=== PATIENT | female | born 1995 | race Caucasian/White ===

== ENCOUNTER 2023-07-14 03:36 | Inpatient (IN) | payer BC ==
[~2023-07-14] VITALS: Ht 170.2 cm; Wt 101.8 kg
[2023-07-14] VITALS (32 sets, daily range): BP systolic 102–145; BP diastolic 55–90; PULSE 60–117; TEMP 97.6–98.8
--- NOTE | 2023-07-14 03:45 | NUR ---
Ambulatory to unit for labor assessment, accompanied by spouse. Pt reports cramping/ctx since 29. Reports 'gush of mucous around the same time and I've been having to go to the bathroom alot since then." Oriented to room, monitor, plan of care. Questions invited and answered. SVE with +amniotrace, minimal clear fluid /-2 post.
--- NOTE | 2023-07-14 03:50 | NUR ---
0350 G2L0 40.4 WEEK GEST TO LR6 WITH C/O SROM AT 0030 AND CONTRACTIONS. EFM ON. SVE WITH POSITIVE AMNIOTRACE AND LEAKING CL FLUID. SVE /-2. ADM ASSESSEMENT COMPLETED. DR DE LEÓN NOTIFIED AND ADM ORDERS RECEIVED.
[2023-07-14] MEDS ORDERED: QUALITY CHOICE1 TA7 PO (03:58)
[2023-07-14] MEDS ORDERED: LR & Oxytocin 500 ML IV SCH ×2 (04:15)
[2023-07-14] MEDS ORDERED: LR 1,000 ML IV SCH (04:15)
[2023-07-14 04:59] LABS: BASO # 0.1 K/mm3 (0.0-0.2); BASO % 0.4 % (0.0-2.0); EOS % 0.1 % (0.0-4.0); GRAN # 15.3 K/mm3 (1.4-6.5); GRAN % 80.2 % (42.2-75.2); HEMATOCRIT 38.5 % (37.0-47.0); HEMOGLOBIN 13.1 g/dl (12.5-16.0); LYMPH # 2.6 K/mm3 (1.2-3.4); LYMPH % 13.5 % (20.0-51.0); MEAN CELL VOLUME 83 fl (80.0-100.0); MEAN CORPUSCULAR HEMOGLOBIN 28 pg (27-31); MEAN CORPUSCULAR HGB CONC 34 g/dl (33.0-37.0); MEAN PLATELET VOLUME 10.8 fl (7.4-10.4); MONO # 0.9 K/mm3 (0.1-0.6); MONO % 4.9 % (1.7-9.3); PLATELET COUNT 268 K/mm3 (130-400); RED BLOOD COUNT 4.64 M/mm3 (4.10-5.30); REDCELL DISTRIBUTION WIDTH-CV 13.3 % (11.5-14.5)
--- NOTE | 2023-07-14 05:20 | NUR ---
0520 STANDING AT SIDE OF BED FOR COMFORT. 0530 DR DE LEÓN HERE. PT IV TO INT. OFF EFM AND UP TO AMB.
--- NOTE | 2023-07-14 06:10 | NUR ---
0610Bedside report from Igor Rose RN. Pt breathing through ctx and requesting epidural. Pt to bathroom to void. 0616EFM placed and tracing well. Pt standing at edge of bed. LR bolus initiated. Infusing well. 0625Andrez rEazo CRNA notified pt requesting epidural. 0635Pt to edge of bed for epidural placement. Andrez Erazo CRNA at bedside. EFM tracing intermittently due to maternal position. 0646Epidural placed and test dose at this time by Andrez Erazo CRNA. See anesthesia record. 0652Pt wedge left. EFM adjusted and tracing well. Plan of care and safety precautions reviewed. Pt verbalizes understanding. 0710Subtle early decels noted. Pt wedge right with peanut ball. Pt reports ctx less intense and able to rest. Call light within reach.
[2023-07-14] MEDS ORDERED: ROPivacaine PF 0.2% 200 ML IV ONE (06:29)
[2023-07-14] MEDS ORDERED: diphenhydrAMINE 25 MG CAP PO PRN (07:15)
[2023-07-14] MEDS ORDERED: Naloxone 0.4 MG/ML VIAL IV PRN ×2 (07:15→09:30)
[2023-07-14] MEDS ORDERED: ePHEDrine 50 MG/10 ML VIAL IV PRN (07:15)
[2023-07-14] MEDS ORDERED: diphenhydrAMINE 50 MG/ML 1 ML VIAL IV PRN (07:15)
[2023-07-14] MEDS ORDERED: Ondansetron 4 MG/2 ML VIAL IV PRN (07:15)
--- NOTE | 2023-07-14 07:48 | NUR ---
0748Side lying hip release.
--- NOTE | 2023-07-14 08:58 | NUR ---
0858SVE C/100/0. Pt instructed on pushing with ctx. 0902Pt pushing with ctx with rn at bedside. Strong maternal effort. Moves vertex well. 0909Dr. Castrejon updated on pt. See physician noticiation. Pt continues to push with contractions. Strong maternal effort. 0954Dr. Castrejon updated on pt. See physician noticiation. 0955Pitocin at 2mu per orders. 1017Dr. Castrejon requested at bedside for delivery. See physician notification. 1029Dr. Castrejon at bedside for delivery. 1036Spontaneous vaginal delivery of viable female . NC x1 reduced on perineum. To mother's chest where dried and stimulated by nursery rn. Pitocin paused. 1038 Cord clamped and cut by father of . Care of assumed by Simba Ruiz RN. 1039Spontaneous and intact delivery of placenta. Pitocin to 333ml/hr per orders. Repair of 2nd degree laceration by Dr. Castrejon. Fundus firm and midline. Plan of care and safety precautions reviewed with pt who verbalizes understanding. See anesthesia record, nurses notes, and anesthesia record.
[2023-07-14] MEDS ORDERED: Ibuprofen 800 MG TAB PO SCH ×2 (09:30→11:30)
[2023-07-14] MEDS ORDERED: Acetaminophen 500 MG TAB PO PRN (09:30)
[2023-07-14] MEDS ORDERED: Magnes Hydrox (MOM) 80 MG/ML 30 ML CUP PO PRN (09:30)
[2023-07-14] MEDS ORDERED: Witch Hazel 50% Pads Bulk TUB TP PRN (09:30)
[2023-07-14] MEDS ORDERED: Measles/Mumps/Rubella Virus Vaccine Live w Diluent 0.5 ML VIAL SQ SCH (09:30)
[2023-07-14] MEDS ORDERED: Loratadine 10 MG TAB PO PRN (09:30)
[2023-07-14] MEDS ORDERED: Mag/Al Hydrox/Simeth Susp 30 ML CUP PO PRN (09:30)
[2023-07-14] MEDS ORDERED: oxyCODONE 5 MG TAB PO PRN (09:30)
[2023-07-14] MEDS ORDERED: Phenylephrine/Mineral Oil/Petrolatum 57 GM TUBE RC PRN (09:30)
[2023-07-14] MEDS ORDERED: Sennosides/Docusate 8.6-50 MG TAB PO SCH (17:00)
[2023-07-14] MEDS ORDERED: traZODone 50 MG TAB PO PRN (21:00)
[2023-07-15 00:15] VITALS: BP 123/79; PULSE 77; TEMP 97.4
[2023-07-15 07:00] VITALS: BP 106/59; PULSE 66; TEMP 97.5
[2023-07-15] MEDS ORDERED: Ibuprofen 800 MG TAB PO SCH (08:00)
[2023-07-15] MEDS ORDERED: MOTRIN 800800 MG/TAB PO (09:11)
== END 2023-07-15 13:00 | disposition home or self-care (01) | DRG 807 ==
LOC: LDRO 03:36 → LDR 04:05 → OB 13:45
PROVIDERS: Obstetrics & Gynecology; ADMIT Obstetrics & Gynecology
PROC: 10E0XZZ Delivery of Products of Conception, External Approach (ICD-10-PCS; principal; 2023-07-14)
PROC: 0KQM0ZZ Repair Perineum Muscle, Open Approach (ICD-10-PCS; 2023-07-14)
PROC: 3E033VJ Introduction of Other Hormone into Peripheral Vein, Percutaneous Approach (ICD-10-PCS; 2023-07-14)
DX: O48.0 Post-term pregnancy (principal); Z37.0 Single live birth; O70.1 Second degree perineal laceration during delivery; O77.0 Labor and delivery complicated by meconium in amniotic fluid; O99.214 Obesity complicating childbirth; O69.81X0 Labor and delivery complicated by cord around neck, without compression, not applicable or unspecified; Z3A.40 40 weeks gestation of pregnancy
CPT/HCPCS: J2590; J2795; J7120